=== PATIENT | female | born 1970 | race Caucasian/White ===

== ENCOUNTER 2024-04-01 16:00 | Outpatient (CLI) | payer BC | END 2024-04-01 16:01 | disposition home or self-care (01) | LOC: SLEEPLAB 16:00 | PROVIDERS: ATTEND Physician Assistant | DX: G47.33 Obstructive sleep apnea (adult) (pediatric) (principal); R53.83 Other fatigue; R51.9 Headache, unspecified; E66.9 Obesity, unspecified; R06.83 Snoring; G47.00 Insomnia, unspecified; I10 Essential (primary) hypertension; Z68.32 Body mass index [BMI] 32.0-32.9, adult | CPT/HCPCS: 95800 ==